=== PATIENT | female | born 1985 | race Caucasian/White ===

== ENCOUNTER 2017-09-10 09:08 | Emergency (ER) | payer OTHER, SELFPAY ==
[2017-09-10 10:43] VITALS: BP 134/86; PULSE 79; RESP 20; TEMP 36.8; O2SAT 98; BMI 67.6
--- NOTE | 2017-09-10 11:01 | HMH.EDUTC ---
[facility] [place] Disposition Clinical Impression: Contact allergic reaction Disposition: Home, Self-Care Condition on Discharge: Good Instructions: DI for Contact Dermatitis, DI for General Allergic Reactions Additional Instructions: * Sounds like could be due to the cleaning products used yesterday. STOP using them immediately or wear gloves. * benadryl every 4-6 hours as we discussed. Guage dose and frequency on symptoms and fatigue. YOU HAD 50mg INJECTION here at 1110 so no additional benadryl for at least 4 hours. If too drowsy, can take zyrtec 10mg during the day and reserve benadryl for nighttime * holding off on steroids due to your type 1 DM. BE SURE to follow up for now, worsening or progressing symptoms as they may be necessary. * cool showers or compresses calms the itching. Oatmeal baths may help as well. * Cortisone cream may also help and wouldn't raise your blood sugar. Referrals: Ana Rdoriguez APRN [Primary Care Provider] - ( Follow up immediately for new, progressing or worsening symptoms. You should notice improvement over the next 24-48 hours so if not, be sure to follow up ) Forms: Work/School Release Time of Disposition: 11:17 Medical Decision Making Vital Signs: 09/10/17 10:43 Temperature 98.2 F Temperature Source Temporal Artery Scan Pulse Rate [Brachial] 79 Respiratory Rate 20 Blood Pressure [Right Arm] 134/86 Blood Pressure Mean [Right Arm] 102 Blood Pressure Source [Right Arm] Automatic Cuff Blood Pressure Position [Right Arm] Sitting 02 Sat by Pulse Oximetry 98 Oxygen Delivery Method Room Air Orders (Tests/Meds): ED MEDICATIONS Generic Name Dose Route Start Last Admin Trade Name Tram PRN Reason Stop Dose Admin Diphenhydramine HCl 50 mg 09/10/17 11:06 Benadryl 50mg/1ml Vial IM 09/10/17 11:07 ONCE ONE - Nader Inquiry Pt receiving controlled substance: No [facility] [place] HPI - General Stated complaint: Hands are swelling Time Seen by Provider: 09/10/17 11:01 Mode of Arrival: Ambulatory Source of Information: Patient Limitations: No Limitations Description of Symptoms (Recalled from Triage Doc. by RN): LAST NIGHT HANDS STARTED ITCHING AND SWELLING. SHE DID CLEAN WITH BLEACH YESTERDAY BUT HAS DONE THAT BEFORE WITH NO PROBLEM. HEENT Symptoms (Recalled from RN notes): No Resp Symptoms (Recalled from RN notes): No Skin Symptoms (Recalled from RN notes): No MS Symptoms (Recalled from RN notes): No Functional Status (Recalled from RN notes): NA - History of Present Illness Provider Complaint: c/o bilateral hands itchy, red, swollen. Two kids w/ stomach virus right now. Cleaned most of the day yesterday w/ cleaning wipes, think bleach ones. Did not wear gloves. Reports doing this multiple times in the past the same way without reactions. Woke up arouns 2am w/ bilateraly hands itching. Up again around 4-5 w/ itching and redness. Noticed swelling a few hours later. Hasn't taken or tried anything for symptoms. Denies SOA, sore throat, difficulty swallowing. Is Type I Diabetic. - Related Data Home Medications Medication Instructions Recorded Confirmed Insulin Aspart [Novolog] 100 unit SQ BID 09/10/17 09/10/17 Insulin Glargine,Hum.rec.anlog 100 unit SQ TID 09/10/17 09/10/17 [Basaglar Kwikpen U-100] Allergies Allergy/AdvReac Type Severity Reaction Status Date / Time amoxicillin [From AUGMENTIN] Allergy Unknown SWELLING Verified 09/10/17 10:06 clavulanic acid Allergy Unknown SWELLING Verified 09/10/17 10:06 [From AUGMENTIN] - Worker's Comp Is this a Worker's Comp case?: No [facility] History I have reviewed the patient's past medical history: Yes Medical History: Reports:: Diabetes Mellitus Type 1 Other Surgeries: Yes: Appendectomy, Other (tonsillectomy, biopsy left groin 1997, laser surgery genital wart ) ROS Obtained: Yes Systems reviewed as appropriate & no additional complaints - Constitutional Constitutional: Denies body ache, Denies chills, Conner
--- NOTE | 2017-09-10 11:06 | ED_ITS ---
[facility] [place] Disposition Clinical Impression: Contact allergic reaction Disposition: Home, Self-Care Condition on Discharge: Good Instructions: DI for Contact Dermatitis, DI for General Allergic Reactions Additional Instructions: * Sounds like could be due to the cleaning products used yesterday. STOP using them immediately or wear gloves. * benadryl every 4-6 hours as we discussed. Guage dose and frequency on symptoms and fatigue. YOU HAD 50mg INJECTION here at 1110 so no additional benadryl for at least 4 hours. If too drowsy, can take zyrtec 10mg during the day and reserve benadryl for nighttime * holding off on steroids due to your type 1 DM. BE SURE to follow up for now, worsening or progressing symptoms as they may be necessary. * cool showers or compresses calms the itching. Oatmeal baths may help as well. * Cortisone cream may also help and wouldn't raise your blood sugar. Referrals: Ana Rodriguez APRN [Primary Care Provider] - ( Follow up immediately for new , progressing or worsening symptoms. You should notice improvement over the next 24-48 hours so if not, be sure to follow up ) Forms: Work/School Release Time of Disposition: 11:17 Medical Decision Making Vital Signs: 09/10/17 10:43 Temperature 98.2 F Temperature Source Temporal Artery Scan Pulse Rate [Brachial] 79 Respiratory Rate 20 Blood Pressure [Right Arm] 134/86 Blood Pressure Mean [Right Arm] 102 Blood Pressure Source [Right Arm] Automatic Cuff Blood Pressure Position [Right Arm] Sitting 02 Sat by Pulse Oximetry 98 Oxygen Delivery Method Room Air Orders (Tests/Meds): ED MEDICATIONS Generic Name Dose Route Start Last Admin Trade Name Tram PRN Reason Stop Dose Admin Diphenhydramine HCl 50 mg 09/10/17 11:06 Benadryl 50mg/1ml Vial IM 09/10/17 11:07 ONCE ONE - Nader Inquiry Pt receiving controlled substance: No [facility] [place] HPI - General Stated complaint: Hands are swelling Time Seen by Provider: 09/10/17 11:01 Mode of Arrival: Ambulatory Source of Information: Patient Limitations: No Limitations Description of Symptoms (Recalled from Triage Doc. by RN): LAST NIGHT HANDS STARTED ITCHING AND SWELLING. SHE DID CLEAN WITH BLEACH YESTERDAY BUT HAS DONE THAT BEFORE WITH NO PROBLEM. HEENT Symptoms (Recalled from RN notes): No Resp Symptoms (Recalled from RN notes): No Skin Symptoms (Recalled from RN notes): No MS Symptoms (Recalled from RN notes): No Functional Status (Recalled from RN notes): NA - History of Present Illness Provider Complaint: c/o bilateral hands itchy, red, swollen. Two kids w/ stomach virus right now. Cleaned most of the day yesterday w/ cleaning wipes, think bleach ones. Did not wear gloves. Reports doing this multiple times in the past the same way without reactions. Woke up arouns 2am w/ bilateraly hands itching. Up again around 4-5 w/ itching and redness. Noticed swelling a few hours later. Hasn't taken or tried anything for symptoms. Denies SOA, sore throat, difficulty swallowing. Is Type I Diabetic. - Related Data Home Medications Medication Instructions Recorded Confirmed Insulin Aspart [Novolog] 100 unit SQ BID 09/10/17 09/10/17 Insulin Glargine,Hum.rec.anlog 100 unit SQ TID 09/10/17 09/10/17 [Basaglheidy Jones U-100] Allergies Allergy/AdvReac Type Severity Reaction Status Date / Time amoxicillin [From AUGMENTIN] Allergy Unknow
== END 2017-09-10 11:19 | disposition home or self-care (01) ==
PROVIDERS: Emergency Provider Nurse Practitioner Family; Family Provider Family Medicine; PCP Nurse Practitioner Family
DX: L50.0 Allergic urticaria (principal); E10.9 Type 1 diabetes mellitus without complications; Z79.4 Long term (current) use of insulin; Z88.1 Allergy status to other antibiotic agents
CPT/HCPCS: 96372; 99202

== ENCOUNTER → 2018-07-23 13:30 | Outpatient (CLI) | payer BC, SELFPAY | PROVIDERS: Visit Provider Nurse Practitioner Family | DX: R11.0 Nausea (principal); E11.9 Type 2 diabetes mellitus without complications | CPT/HCPCS: 87086; 87088; 87186 ==

== ENCOUNTER → 2018-11-01 10:34 | Outpatient (CLI) | payer BC, SELFPAY ==
[2018-11-01 10:49] LABS: Basophils # 0.1 K/mm3 (0-0.2); Eosinophils # 0.1 K/mm3 (0.0-0.4); Eosinophils % 2.1 % (0.1-12.0); Hematocrit 44.4 % (37.0-47.0); Lymphocytes # 1.8 K/mm3 (0.7-4.5); Lymphocytes % 32.2 % (10-50); Mean Corpuscular HGB Conc 31.6 g/dL (31.8-35.4); Mean Corpuscular Hemoglobin 29.7 pg (27.0-31.2); Mean Corpuscular Volume 94.1 fl (81-99); Mean Platelet Volume 8.3 fl (7.4-10.4); Monocytes # 0.2 K/mm3 (0.1-1.0); Monocytes % 3.1 % (1.7-9.3); Neutrophils # 3.5 K/mm3 (1.8-7.8); Neutrophils % 61.6 % (37.0-80.0); Platelet Count 293 K/mm3 (142-424); Red Blood Count 4.72 M/mm3 (4.20-5.40); Red Cell Distribution Width 13.3 % (11.5-17.5); White Blood Count 5.7 K/mm3 (4.8-10.8)
[2018-11-01 12:12] LABS: Alanine Aminotransferase 21 U/L (12-78); Albumin Level 3.6 gm/dL (3.4-5.0); Alkaline Phosphatase 65 U/L (46-116); Anion Gap 14.5 mEq/L (5-15); Aspartate Amino Transferase 13 U/L (15-37); Bilirubin,Total 0.4 mg/dL (0.2-1.0); Blood Urea Nitrogen 12 mg/dL (7-18); Calcium 8.8 mg/dL (8.5-10.1); Carbon Dioxide 28 mmol/L (21.0-32.0); Chloride 104 mmol/L (98-107); Creatinine,Serum 0.65 mg/dL (0.55-1.02); Estimated Glomerular Filt Rate 104 ml/min (>60); GFR (African American) 126 ML/MIN (>60); Globulin 3.7 gm/dl (1.3-3.2); Glucose 157 mg/dL (74-106); Potassium 4.5 mmoL/L (3.5-5.1); Sodium 142 mmol/L (136-145); Thyroid Stimulating Hormone 0.56 uIU/ml (0.358-3.740); Total Protein,Serum 7.3 gm/dL (6.4-8.2)
[2018-11-01 14:36] LABS: Hemoglobin A1C 8.1 % (0.0-7.0)
[2018-11-02 10:37] LABS: Microalbumin, Urine <3.0 ug/mL (Not Estab.)
== END ==
PROVIDERS: Visit Provider Internal Medicine Adolescent Medicine
DX: E10.9 Type 1 diabetes mellitus without complications (principal); Z79.4 Long term (current) use of insulin
CPT/HCPCS: 36415; 80053; 82043; 83036; 84443; 85025

== ENCOUNTER → 2019-07-10 12:25 | Outpatient (CLI) | payer BC, SELFPAY ==
[2019-07-10 14:16] LABS: Anion Gap 9.3 mEq/L (5-15); Blood Urea Nitrogen 9 mg/dL (7-18); Calcium 8.3 mg/dL (8.5-10.1); Carbon Dioxide 28 mmol/L (21.0-32.0); Chloride 105 mmol/L (98-107); Creatinine,Serum 0.72 mg/dL (0.55-1.02); Estimated Glomerular Filt Rate 92 ml/min (>60); GFR (African American) 111 ML/MIN (>60); Glucose 165 mg/dL (74-106); Potassium 4.3 mmoL/L (3.5-5.1); Sodium 138 mmol/L (136-145)
[2019-07-10 14:23] LABS: Hemoglobin A1C 8.9 % (0.0-7.0)
== END ==
PROVIDERS: Visit Provider Internal Medicine Adolescent Medicine
DX: E10.9 Type 1 diabetes mellitus without complications (principal)
CPT/HCPCS: 36415; 80048; 83036

== ENCOUNTER → 2019-10-16 13:12 | Outpatient (CLI) | payer BC, SELFPAY ==
[2019-10-16 16:06] LABS: HDL Cholesterol 67 mg/dl (40-60)
[2019-10-16 16:16] LABS: Direct LDL Cholesterol 100.22 mg/dL (100-129)
[2019-10-16 16:21] LABS: Triglycerides 49 mg/dl (30-150); VLDL Cholesterol 10 mg/dL (0-40)
[2019-10-16 17:19] LABS: Chol/HDL Ratio 2.5 (1-3.5); Cholesterol 170 mg/dl (140-200)
[2019-10-16 17:21] LABS: Hemoglobin A1C 7.7 % (4.0-6.0)
== END ==
PROVIDERS: Visit Provider Internal Medicine Adolescent Medicine
DX: E10.9 Type 1 diabetes mellitus without complications (principal)
CPT/HCPCS: 36415; 80061; 83036

== ENCOUNTER → 2020-01-16 12:39 | Outpatient (CLI) | payer BC, SELFPAY ==
[2020-01-16 13:36] LABS: Hemoglobin A1C 7.2 % (4.0-6.0)
[2020-01-16 14:15] LABS: Chloride 102 mmol/L (98-107)
[2020-01-16 14:16] LABS: Potassium 4.3 mmoL/L (3.5-5.1); Sodium 139 mmol/L (136-145)
[2020-01-16 14:18] LABS: Alanine Aminotransferase 17 U/L (12-78); Alkaline Phosphatase 52 U/L (38-126); Anion Gap 13.3 mEq/L (5-15); Aspartate Amino Transferase 21 U/L (14-36); Bilirubin,Total 0.7 mg/dl (0.2-1.3); Blood Urea Nitrogen 8 mg/dl (7-17); Carbon Dioxide 28 mmol/L (22.0-30.0); Estimated Glomerular Filt Rate 95 ml/min (>60); GFR (African American) 115 ML/MIN (>60)
[2020-01-16 14:19] LABS: Albumin Level 4.6 g/dl (3.5-5.0); Albumin/Globulin Ratio 1.6 (1.1-1.8); Calcium 9.7 mg/dl (8.4-10.2); Globulin 2.8 g/dL (1.3-3.2); Glucose 208 mg/dl (74-100); Total Protein,Serum 7.4 g/dl (6.3-8.2)
== END ==
PROVIDERS: Visit Provider Internal Medicine Adolescent Medicine
DX: E10.9 Type 1 diabetes mellitus without complications (principal)
CPT/HCPCS: 36415; 80053; 83036

== ENCOUNTER 2020-03-22 00:23 | Emergency (ER) | payer BC, SELFPAY ==
[2020-03-22] VITALS (11 sets, daily range): BP systolic 102–171; BP diastolic 67–108; PULSE 50–88; RESP 15–17; TEMP 36.7; O2SAT 96–100; BMI 34.0
--- NOTE | 2020-03-22 00:28 | XR_ITS ---
PROCEDURE: XR CHEST PORTABLE CLINICAL HISTORY: chest pain COMPARISON: CXR CHEST(2 VIEWS-NOT PORTABLE) from 02/26/2015 CXR1 CHEST-PORTABLE from 03/16/2017 FINDINGS: The cardiomediastinal silhouette and pulmonary vascularity are within normal limits. The lungs are clear without infiltrates, suspicious nodules, or pleural effusions. No acute bony abnormalities. IMPRESSION: No acute findings. Dictated by: Thomas Chester MD 03/22/2020 08:03 Electronically signed by Thomas Chester MD in [place] 03/22/2020 08:03
--- NOTE | 2020-03-22 00:32 | ECG_ITS ---
APPROVED REPORT Exam: Resting ECG HR:73 bpm ECG Measurements Heart Rate 73 AXES AL 154 P 61 QRSd 86 QRS 74 QT 376 T 53 QTc 414 <Conclusion> Normal sinus rhythm Possible Left atrial enlargement Low voltage QRS Borderline ECG Electronically signed by : Miki Bourne, 03/22/2020 09:12:16
[2020-03-22 00:42] LABS: Basophils # 0.1 K/mm3 (0-0.2); Basophils % 0.8 % (0.1-2.0); Eosinophils # 0.2 K/mm3 (0.0-0.4); Eosinophils % 3.2 % (0.1-12.0); Hematocrit 42.4 % (37.0-47.0); Hemoglobin 14.5 g/dL (12.2-16.2); Lymphocytes % 49.7 % (10-50); Mean Corpuscular HGB Conc 34.2 g/dL (31.8-35.4); Mean Corpuscular Hemoglobin 31.2 pg (27.0-31.2); Mean Corpuscular Volume 91.4 fl (81-99); Mean Platelet Volume 8.8 fl (7.4-10.4); Monocytes # 0.2 K/mm3 (0.1-1.0); Monocytes % 3.3 % (1.7-9.3); Neutrophils # 2.6 K/mm3 (1.8-7.8); Platelet Count 204 K/mm3 (142-424); Red Blood Count 4.64 M/mm3 (4.20-5.40); Red Cell Distribution Width 13.2 % (11.5-17.5); White Blood Count 6.1 K/mm3 (4.8-10.8)
[2020-03-22 00:44] LABS: Anion Gap 12.8 mEq/L (5-15); Blood Urea Nitrogen 9 mg/dl (7-17); Calcium 9.3 mg/dl (8.4-10.2); Carbon Dioxide 27 mmol/L (22.0-30.0); Chloride 102 mmol/L (98-107); Creatinine Clearance Estimated 208 mL/min (50-200); Estimated Glomerular Filt Rate 113 ml/min (>60); GFR (African American) 137 ML/MIN (>60); Glucose 289 mg/dl (74-100); Potassium 3.8 mmoL/L (3.5-5.1); Sodium 138 mmol/L (136-145)
[2020-03-22 00:53] LABS: NT Pro Brain Natriuretic Pep. 56.9 pg/mL (0-125)
[2020-03-22 00:58] LABS: Troponin I < 0.01 ng/ml (0.00-0.034)
[2020-03-22 01:02] LABS: T4 (Thyroxine) 8.2 ug/dl (5.53-11.0)
[2020-03-22 04:21] LABS: Troponin I < 0.01 ng/ml (0.00-0.034)
--- NOTE | 2020-03-22 05:07 | HMH.EDCP ---
ED Disposition Clinical Impression: Chest pain Disposition: Home, Self-Care Condition on Discharge: Good Instructions: DI for Atypical Chest Pain Referrals: Provider,Referral, MD [Primary Care Provider] - - Critical Care Critical Care Time: No Attestation: On 03/22/20, the high probability of a clinically significant, sudden or life threatening deterioration of the following system(s) required my full and direct attention, intervention and personal management. The time I documented below is in addition to time spent performing reported procedures but includes the following listed in this critical care notation. Medical Decision Making - Medical Records Medical records reviewed: Yes: I reviewed the patient's medical records. - Nader Inquiry Pt receiving controlled substance: No Vital Signs: 03/22/20 00:24 Temperature 98.0 F Temperature Source Oral Pulse Rate [Right Brachial] 88 Respiratory Rate 16 Blood Pressure [Right Arm] 171/108 H Blood Pressure Mean [Right Arm] 129 Blood Pressure Source [Right Arm] Automatic Cuff Blood Pressure Position [Right Arm] Sitting 02 Sat by Pulse Oximetry 98 Oxygen Delivery Method Room Air - Lab Data Lab results reviewed: Yes: I reviewed the patient's lab results. Lab Results 03/22/20 00:25: WBC 6.1, RBC 4.64, Hgb 14.5, Hct 42.4, MCV 91.4, MCH 31.2, MCHC 34.2, RDW 13.2, Plt Count 204, MPV 8.8, Neut % (Auto) 43.0, Lymph % (Auto) 49.7, [place] % (Auto) 3.3, Eos % (Auto) 3.2, Baso % (Auto) 0.8, Neut # (Auto) 2.6, Lymph # (Auto) 3.0, [place] # (Auto) 0.2, Eos # (Auto) 0.2, Baso # (Auto) 0.1 03/22/20 00:25: Sodium 138, Potassium 3.8, Chloride 102, Carbon Dioxide 27, Anion Gap 12.8, BUN 9, Creatinine 0.60, Estimated Creat Clear 208, Estimated GFR 113, Est GFR ( Amer) 137, Glucose 289 H, Calcium 9.3, Troponin I < 0.01, TSH 0.90, Thyroxine (T4) 8.2 03/22/20 00:25: NT-Pro-B Natriuret Pep 56.9 03/22/20 03:30: Troponin I < 0.01 Result diagrams: 03/22/20 00:25 03/22/20 00:25 Orders (Tests/Meds): ED MEDICATIONS Generic Name Dose Route Start Last Admin Trade Name Freq PRN Reason Stop Dose Admin Nitroglycerin 0.4 mg 03/22/20 00:32 03/22/20 00:36 Nitrostat 0.4mg Sl Tablet SL 04/21/20 00:31 1 tab Q5MINP PRN Administration Chest Pain Discontinued Medications Generic Name Dose Route Start Last Admin Trade Name Freq PRN Reason Stop Dose Admin Aspirin 324 mg 03/22/20 00:32 03/22/20 00:36 Aspirin 81mg Chewable Tablet PO 03/22/20 00:33 81 mg ONCE ONE Administration Morphine Sulfate 4 mg 03/22/20 01:51 03/22/20 01:56 Morphine 4mg/Ml Syringe IV 03/22/20 01:52 4 mg ONCE ONE Administration ORDERS Category Date Time Status XR chest portable Stat Exams 03/22/20 00:28 Taken Troponin I Q3H Lab 03/22/20 06:45 Ordered - Radiology Data #1 Image(s): Chest Preliminary Findings: Normal/NAD - ECG Data Tracing #1 I reviewed this ECG and interpreted as documented below: Normal Sinus Rhythm: Yes Medical Decision Narrative: Had 2 troponins drawn here in the ED both were negative. Chest Pain HPI - General Chief Complaint: Chest Pain Stated Complaint: chest pain Time Seen by Provider: 03/22/20 02:00 Mode of Arrival: Family Vehicle Limitations: No Limitations Description of Symptoms (Recalled from ER Triage Doc. by RN): began having chest pain this evening around 1999 while at work. stated it was dull and located directly over her heart with intermittent sharp radiation to the left neck and left arm. Pt denies nausea. states she feels like she can't get a 'deep breath'. - History of Present Illness MD complaint: chest pain Onset (ago): hour(s) Time: 18:00 Duration: intermittent Activity at onset: during rest Pain location: substernal Severity: moderate Severity scale (1-10): 3 Quality: tightness Pain radiation: LUE Relieving factors: rest Exacerbating factors: inspiration, movement Associated symptoms
--- NOTE | 2020-03-22 06:37 | PC.NURSE ---
pt left via adult female family member. no acute distress. no issues.
[2020-04-19 11:53] LABS: POC Glucose,Bedside 277 (70-110)
== END 2020-03-22 06:38 | disposition home or self-care (01) ==
PROVIDERS: Emergency Provider Family Medicine; PCP Internal Medicine Adolescent Medicine
DX: R07.9 Chest pain, unspecified (principal); E10.9 Type 1 diabetes mellitus without complications; F17.210 Nicotine dependence, cigarettes, uncomplicated; Z88.1 Allergy status to other antibiotic agents; Z90.49 Acquired absence of other specified parts of digestive tract
CPT/HCPCS: 71045; 80048; 82962; 83880; 84436; 84443; 84484; 85025; 93005; 96365; 96374; 96375; 99283; 99284

== ENCOUNTER → 2020-03-26 13:41 | Outpatient (CLI) | payer BC, SELFPAY ==
[2020-03-26 15:09] LABS: Hemoglobin A1C 7.6 % (4.0-6.0)
[2020-03-26 15:12] LABS: Alanine Aminotransferase 16 U/L (12-78); Albumin Level 4.5 g/dl (3.5-5.0); Albumin/Globulin Ratio 1.7 (1.1-1.8); Alkaline Phosphatase 55 U/L (38-126); Anion Gap 12.2 mEq/L (5-15); Aspartate Amino Transferase 23 U/L (14-36); Bilirubin,Total 0.5 mg/dl (0.2-1.3); Blood Urea Nitrogen 7 mg/dl (7-17); Calcium 9.7 mg/dl (8.4-10.2); Carbon Dioxide 30 mmol/L (22.0-30.0); Chloride 104 mmol/L (98-107); Chol/HDL Ratio 1.8 (1-3.5); Cholesterol 156 mg/dl (140-200); Estimated Glomerular Filt Rate 113 ml/min (>60); GFR (African American) 137 ML/MIN (>60); Globulin 2.7 g/dL (1.3-3.2); Glucose 89 mg/dl (74-100); HDL Cholesterol 87 mg/dl (40-60); Potassium 4.2 mmoL/L (3.5-5.1); Sodium 142 mmol/L (136-145); Total Protein,Serum 7.2 g/dl (6.3-8.2); Triglycerides 48 mg/dl (30-150); VLDL Cholesterol 10 mg/dL (0-40)
[2020-03-26 15:23] LABS: Direct LDL Cholesterol 70.49 mg/dL (100-129)
== END ==
PROVIDERS: Visit Provider Internal Medicine Adolescent Medicine
DX: E10.9 Type 1 diabetes mellitus without complications (principal); Z79.4 Long term (current) use of insulin
CPT/HCPCS: 36415; 80053; 80061; 83036

== ENCOUNTER 2020-06-06 15:40 | Emergency (ER) | payer BC, SELFPAY ==
[2020-06-06 16:59] VITALS: BP 140/89; PULSE 81; RESP 18; TEMP 36.7; O2SAT 98; BMI 29.0
--- NOTE | 2020-06-06 17:14 | HMH.EDUTC ---
[facility] [place] Disposition Clinical Impression: Encounter for laboratory testing for COVID-19 virus Allergic rhinitis Qualifiers: Allergic rhinitis trigger: unspecified Allergic rhinitis seasonality: unspecified Qualified Code(s): J30.9 - Allergic rhinitis, unspecified Disposition: Home, Self-Care Condition on Discharge: Good Instructions: Allergic Rhinitis, DI for Allergic Rhinitis, Fluticasone Nasal [place], Preventing the Spread of Coronavirus Discharge Instructions Additional Instructions: *Monitor Temp, Over the counter Motrin or Tylenol as directed/as needed Tylenol every 4 hours and Motrin every 6 hours (as long as your family doctor has told you that you can take it) for fever or pain. and straight to ER if unable to lower temp less than 101.0 after medication given *Warm salt water gargles may help to soothe the throat *Throat Lozenges *Warm fluids like tea with honey may help to soothe the throat *Sleep elevated *Humidifier/Vaporizer *Flonase 2 sprays in each nostril daily but be aware that it may take 2-3 days before you notice improvement Follow up IMMEDIATELY for new or worsening symptoms or no Noticeable improvement over the next 48-72 hours. 911 for difficulty breathing or swallowing You was tested for today for COVID19 your test result should be back on Sunday, you may call back on Sunday to see if your test results are back and the result You was given a handout with instructions for Self Quarantine and Self isolation for while you wait on test results and what to do if they are positive Prescriptions: Fluticasone Propionate [Flonase 50mcg nasal spray 16gm] 1 spr NS DAILY #1 bottle [facility]: [id number] Referrals: Cornelius Vargas MD [Primary Care Provider] - As needed Forms: Work/School Release Time of Disposition: 17:45 Medical Decision Making - Nader Inquiry Pt receiving controlled substance: No Nader was queried for this patient: No Vital Signs: 06/06/20 16:59 Temperature 98.1 F Temperature Source Oral Pulse Rate [Radial] 81 Respiratory Rate 18 Blood Pressure [Right Arm] 140/89 Blood Pressure Mean [Right Arm] 106 Blood Pressure Source [Right Arm] Automatic Cuff Blood Pressure Position [Right Arm] Sitting 02 Sat by Pulse Oximetry 98 Oxygen Delivery Method Room Air Orders (Tests/Meds): ORDERS Category Date Time Status Covid-19 Nasal PCR Sendout Srinivasan Stat Lab 06/06/20 17:00 Received [facility] [place] HPI - General Stated complaint: Sore throat,cough,Wants Covid test Time Seen by Provider: 06/06/20 17:14 Mode of Arrival: Ambulatory Source of Information: Patient Limitations: No Limitations Description of Symptoms (Recalled from Triage Doc. by RN): coughing, sore throat since Sunday. HEENT Symptoms (Recalled from RN notes): Yes Resp Symptoms (Recalled from RN notes): No Skin Symptoms (Recalled from RN notes): No MS Symptoms (Recalled from RN notes): No Functional Status (Recalled from RN notes): wnl - History of Present Illness Provider Complaint: Patient states that she has been having sore throat nasal drainage and cough State that she has allergies and usually gets this this time of year but work will not let her come in with these symptoms where they are similar to COVID so she came in to get tested - Related Data Home Medications Medication Instructions Recorded Confirmed Insulin Aspart [Novolog Flexpen 8 unit SUB-Q TID 10/18/18 10/18/18 U-100 Insulin] Atorvastatin Calcium [Lipitor 20mg 20 mg PO HS 03/22/20 03/22/20 Tab] Gabapentin [Gabapentin 300mg Cap] 300 mg PO DAILY 03/22/20 03/22/20 Previous Rx's Medication Instructions Recorded insulin glargine 100 unit/mL (3 20 unit SUB-Q BID #15 ml 07/23/18 mL) subcutaneous pen Fluticasone Propionate [Flonase 1 spr NS DAILY #1 bottle 06/06/20 50mcg nasal spray 16gm] Allergies Allergy/AdvReac Type Severity Reaction Status Date / Time amoxicillin [From AUGMENTIN] Allergy Unknown SWE
[2020-06-06 18:08] VITALS: BP 140/89; PULSE 81; RESP 18; TEMP 36.7; O2SAT 98
[2020-06-08 13:54] LABS: Covid-19 Nasal PCR Sendout Lex Not Detected
== END 2020-06-06 18:09 | disposition home or self-care (01) ==
PROVIDERS: Emergency Provider Nurse Practitioner; PCP Internal Medicine Adolescent Medicine
DX: Z20.828 Contact with and (suspected) exposure to other viral communicable diseases (principal); J30.9 Allergic rhinitis, unspecified; E11.9 Type 2 diabetes mellitus without complications; F17.210 Nicotine dependence, cigarettes, uncomplicated; Z88.1 Allergy status to other antibiotic agents
CPT/HCPCS: 99201; U0004

== ENCOUNTER → 2020-11-09 10:50 | Outpatient (CLI) | payer BC, SELFPAY ==
[2020-11-09 11:22] LABS: Hemoglobin A1C 9.1 % (4.0-6.0)
[2020-11-09 11:56] LABS: Chloride 107 mmol/L (98-107); Sodium 142 mmol/L (136-145)
[2020-11-09 11:57] LABS: Potassium 4.2 mmoL/L (3.5-5.1)
[2020-11-09 11:59] LABS: Alanine Aminotransferase 22 U/L (12-78); Albumin Level 4.4 g/dl (3.5-5.0); Albumin/Globulin Ratio 1.6 (1.1-1.8); Alkaline Phosphatase 61 U/L (38-126); Anion Gap 9.2 mEq/L (5-15); Aspartate Amino Transferase 25 U/L (14-36); Bilirubin,Total 0.5 mg/dl (0.2-1.3); Blood Urea Nitrogen 9 mg/dl (7-17); Carbon Dioxide 30 mmol/L (22.0-30.0); Cholesterol 210 mg/dl (140-200); Estimated Glomerular Filt Rate 112 ml/min (>60); GFR (African American) 136 ML/MIN (>60); Globulin 2.7 g/dL (1.3-3.2); Total Protein,Serum 7.1 g/dl (6.3-8.2); Triglycerides 53 mg/dl (30-150); VLDL Cholesterol 11 mg/dL (0-40)
[2020-11-09 12:00] LABS: Calcium 9.6 mg/dl (8.4-10.2); Chol/HDL Ratio 2.5 (1-3.5); Glucose 164 mg/dl (74-100); HDL Cholesterol 83 mg/dl (40-60)
[2020-11-09 12:13] LABS: Direct LDL Cholesterol 102.49 mg/dL (100-129)
[2020-11-09 12:28] LABS: Thyroid Stimulating Hormone 0.54 uIU/mL (0.465-4.68)
== END ==
LOC: LAB 10:51
PROVIDERS: Visit Provider Internal Medicine Adolescent Medicine
DX: E10.9 Type 1 diabetes mellitus without complications (principal)
CPT/HCPCS: 36415; 80053; 80061; 83036; 84443

== ENCOUNTER → 2020-12-22 15:08 | Outpatient (CLI) | payer BC, SELFPAY ==
[2020-12-22 15:48] LABS: Basophils # 0.1 K/mm3 (0-0.2); Basophils % 0.8 % (0.1-2.0); Eosinophils # 0.2 K/mm3 (0.0-0.4); Eosinophils % 2.5 % (0.1-12.0); Hematocrit 40.8 % (37.0-47.0); Hemoglobin 13.6 g/dL (12.2-16.2); Lymphocytes # 1.7 K/mm3 (0.7-4.5); Lymphocytes % 23.9 % (10-50); Mean Corpuscular HGB Conc 33.3 g/dL (31.8-35.4); Mean Corpuscular Hemoglobin 30.2 pg (27.0-31.2); Mean Corpuscular Volume 90.6 fl (81-99); Mean Platelet Volume 8.3 fl (7.4-10.4); Monocytes # 0.3 K/mm3 (0.1-1.0); Monocytes % 4.3 % (1.7-9.3); Neutrophils # 4.9 K/mm3 (1.8-7.8); Neutrophils % 68.5 % (37.0-80.0); Platelet Count 272 K/mm3 (142-424); Red Cell Distribution Width 13.2 % (11.5-17.5); White Blood Count 7.1 K/mm3 (4.8-10.8)
[2020-12-22 17:46] LABS: Vitamin B12 367 pg/mL (239-931)
== END ==
LOC: LAB 15:09
PROVIDERS: Visit Provider Nurse Practitioner Family
DX: R42 Dizziness and giddiness (principal); M54.5 Low back pain
CPT/HCPCS: 36415; 82607; 85025

== ENCOUNTER → 2021-03-04 16:35 | Outpatient (CLI) | payer BC, SELFPAY ==
[2021-03-04 17:38] LABS: Hemoglobin A1C 7.6 % (4.0-6.0)
[2021-03-04 20:01] LABS: Alanine Aminotransferase 18 U/L (12-78); Albumin Level 4.4 g/dl (3.5-5.0); Albumin/Globulin Ratio 1.6 (1.1-1.8); Alkaline Phosphatase 51 U/L (38-126); Anion Gap 13.2 mEq/L (5-15); Aspartate Amino Transferase 21 U/L (14-36); Bilirubin,Total 0.5 mg/dl (0.2-1.3); Blood Urea Nitrogen 8 mg/dl (7-17); Calcium 8.9 mg/dl (8.4-10.2); Carbon Dioxide 26 mmol/L (22.0-30.0); Chloride 109 mmol/L (98-107); Estimated Glomerular Filt Rate 112 ml/min (>60); GFR (African American) 136 ML/MIN (>60); Globulin 2.7 g/dL (1.3-3.2); Potassium 4.2 mmoL/L (3.5-5.1); Sodium 144 mmol/L (136-145); Total Protein,Serum 7.1 g/dl (6.3-8.2)
[2021-03-04 20:44] LABS: Glucose 50 mg/dl (74-100)
== END ==
LOC: LAB 16:36
PROVIDERS: Visit Provider Internal Medicine Adolescent Medicine
DX: E10.9 Type 1 diabetes mellitus without complications (principal); Z79.4 Long term (current) use of insulin
CPT/HCPCS: 36415; 80053; 83036

== ENCOUNTER 2021-04-24 13:12 | Emergency (ER) | payer BC, SELFPAY ==
[2021-04-24 13:40] VITALS: BP 133/91; PULSE 91; RESP 18; TEMP 36.9; O2SAT 100; BMI 31.8
--- NOTE | 2021-04-24 14:16 | HMH.EDUTC ---
[facility] [place] Clinical Impression: Encounter for laboratory testing for COVID-19 virus Disposition: Home, Self-Care Condition on Discharge: Good Instructions: How to Care for Someone with COVID-19, DI for COVID-19 (Suspected or Confirmed ), DI for Nausea -- Adult Additional Instructions: covid swab was sent to lab, call later today for results. self isolate until test results are known to be negative Monitor temperature. Seek treatment if fever develops. Follow-up immediately if new or worse symptoms worsen or no noticeable improvement over 48 hours. Increase fluids such as water, Gatorade, Powerade, juice or Pedialyte with limited formula/dietary in children No food is okay as long as you are drinking. Once ready to eat start bland such as bananas, rice, applesauce, toast. Contagious until no diarrhea, vomiting, fever times 48 hours without medication Avoid antidiarrheals unless told otherwise. Best to let the virus run its course. Follow-up immediately for new or worsening symptoms or no noticeable improvement over the next 48 hours. Referrals: Cornelius Vargas MD [Primary Care Provider] - Time of Disposition: 14:21 Medical Decision Making - Nader Inquiry Pt receiving controlled substance: No Vital Signs: 04/24/21 13:40 Temperature 98.5 F Temperature Source Oral Pulse Rate [Right Brachial] 91 H Respiratory Rate 18 Blood Pressure [Right Arm] 133/91 H Blood Pressure Mean [Right Arm] 105 Blood Pressure Source [Right Arm] Automatic Cuff Blood Pressure Position [Right Arm] Sitting 02 Sat by Pulse Oximetry 100 Oxygen Delivery Method Room Air Orders (Tests/Meds): ORDERS Category Date Time Status Covid-19 Nasal PCR ([facility]) Routine Lab 04/24/21 13:50 Received [facility] [place] HPI - General Chief complaint: [facility] Stated complaint: nausea,tired Time Seen by Provider: 04/24/21 14:17 Mode of Arrival: Ambulatory Source of Information: Patient Limitations: No Limitations Description of Symptoms (Recalled from Triage Doc. by RN): PATIENT C/O SORE THROAT, FATIGUE, AND NAUSEA X 2 DAYS. REQUESTING COVID TEST HEENT Symptoms (Recalled from RN notes): No Resp Symptoms (Recalled from RN notes): No Skin Symptoms (Recalled from RN notes): No MS Symptoms (Recalled from RN notes): No Functional Status (Recalled from RN notes): WNL - History of Present Illness Provider Complaint: 35 yr old female presents for nausea,tiredness and sore throat for 2 days. request covid test - Related Data Home Medications Medication Instructions Recorded Confirmed Insulin Aspart [Novolog Flexpen 8 unit SUB-Q TID 10/18/18 10/18/18 U-100 Insulin] Atorvastatin Calcium [Lipitor 20mg 20 mg PO HS 03/22/20 03/22/20 Tab] Gabapentin [Gabapentin 300mg Cap] 300 mg PO DAILY 03/22/20 03/22/20 Previous Rx's Medication Instructions Recorded insulin glargine 100 unit/mL (3 20 unit SUB-Q BID #15 ml 07/23/18 mL) subcutaneous pen Fluticasone Propionate [Flonase 1 spr NS DAILY #1 bottle 06/06/20 50mcg nasal spray 16gm] Allergies Allergy/AdvReac Type Severity Reaction Status Date / Time amoxicillin [From AUGMENTIN] Allergy Unknown SWELLING Verified 07/23/18 08:50 clavulanic acid Allergy Unknown SWELLING Verified 07/23/18 08:50 [From AUGMENTIN] - Worker's Comp Is this a Worker's Comp case?: No [facility] History - Hepatitis A Screen Drug use history?: No High risk sexual behaviors?: No History of sexually transmitted infection?: No Currently employed?: No Childcare worker?: No Do you have indoor plumbing?: Yes Do you have electricity?: Yes Attestation statement:: This patient has been screened for Hepatitis A risk factors. I have reviewed the patient's past medical history: Yes Medical History: Reports:: Diabetes Mellitus Type 1 Other Surgeries: Yes: Appendectomy, Other Amputation: No Fractures: No - Social History Smoking Status: Current every day smoker Tobacco Type: cigarettes # Packs/Day
[2021-04-24 14:22] VITALS: BP 133/91; PULSE 91; RESP 18; TEMP 36.9; O2SAT 100
== END 2021-04-24 14:29 | disposition home or self-care (01) ==
PROVIDERS: Emergency Provider Nurse Practitioner Family; PCP Internal Medicine Adolescent Medicine
DX: Z20.822 Contact with and (suspected) exposure to COVID-19 (principal)
CPT/HCPCS: 99202; G0463; U0003

== ENCOUNTER 2021-06-06 10:31 | Emergency (ER) | payer BC, SELFPAY ==
[2021-06-06 10:44] VITALS: BP 143/93; PULSE 92; RESP 16; TEMP 36.6; O2SAT 100; BMI 31.8
--- NOTE | 2021-06-06 11:06 | HMH.EDUTC ---
[facility] [place] Clinical Impression: Viral syndrome, Bronchitis Type 1 diabetes mellitus Qualifiers: Diabetes mellitus complication status: without complication Qualified Code(s): E10.9 - Type 1 diabetes mellitus without complications Disposition: Home, Self-Care Condition on Discharge: Good Instructions: DI for Acute Bronchitis, DI for Viral Syndrome, DI for COVID-19 (Suspected or Confirmed ), Preventing the Spread of Coronavirus Discharge Instructions Additional Instructions: Drink plenty of fluids. Take tylenol or ibuprofen for pain or fever. Take the medications as directed. Follow up with your regular doctor. GO TO THE ER FOR ANY WORSENING SYMPTOMS Quarantine until you know the results of your covid-19 test. If it is positive, the health department should call you and give you further instructions about your length of Quarantine and other things. Notify your school or workplace of your results and follow their instructions regarding return to work/school. Prescriptions: Brompheniramine/Pseudoephed/Dm [Bromfed Dm Cough Syrup] 5 ml PO Q6HP PRN #240 ml PRN Reason: Cough Transmission Status: Received by [facility] Promethazine HCl [Phenergan 25mg tab] 25 mg PO Q6H PRN #12 tab PRN Reason: Nausea And Vomiting Transmission Status: Received by [facility] Azithromycin [Z-Celestine 250mg Tab*] 250 mg PO UD DOSE PK #6 tab Transmission Status: Received by [facility] Referrals: Cornelius Vargas MD [Primary Care Provider] - Forms: Work/School Release Time of Disposition: 11:22 Medical Decision Making - Medical Records Medical records reviewed: No: I reviewed the patient's medical records. - Nader Inquiry Pt receiving controlled substance: No Vital Signs: 06/06/21 10:44 06/06/21 11:37 Temperature 97.8 F 98.3 F Temperature Source Oral Oral Pulse Rate 90 Pulse Rate [Right] 92 H Respiratory Rate 16 16 Blood Pressure 140/87 Blood Pressure [Right Arm] 143/93 H Blood Pressure Mean [Right Arm] 109 Blood Pressure Source Automatic Cuff Blood Pressure Source [Right Arm] Automatic Cuff Blood Pressure Position Sitting Blood Pressure Position [Right Arm] Sitting 02 Sat by Pulse Oximetry 100 Oxygen Delivery Method Room Air Room Air - Lab Data Lab results reviewed: Yes: I reviewed the patient's lab results. Lab Results 06/06/21 10:45: Chlamy pneumoniae PCR Not detected, Adenovirus (PCR) Not detected, B. pertussis DNA (PCR) Not detected, Coronavirus OC43 (PCR) Not detected, Coronavirus HKU1 (PCR) Not detected, Coronavirus 229E (PCR) Not detected, SARS-CoV-2 (PCR) Not detected, Coronavirus NL63 (PCR) Not detected, Human Metapneumovir PCR Not detected, Influenza A (H1) PCR Not detected, Influ A (H1N1/09) PCR Not detected, Influenza A (H3) PCR Not detected, Influenza Type A (PCR) Not detected, Influenza Type B (PCR) Not detected, M. pneumoniae (PCR) Not detected, Parainfluenza 1 (PCR) Not detected, Parainfluenza 2 (PCR) Not detected, Parainfluenza 3 (PCR) Not detected, Parainfluenza 4 (PCR) Not detected, RSV (PCR) Not detected, Entero/Rhino (PCR) Not detected 06/06/21 11:04: Strep Scn Rapid Clinic Negative Orders (Tests/Meds): ORDERS Category Date Time Status Strep Screen Confirmation Routine Micro 06/06/21 11:04 Received [facility] HPI - General Stated complaint: vomiting, headache, dizziness Time Seen by Provider: 06/06/21 11:06 Mode of Arrival: Ambulatory Source of Information: Patient Limitations: No Limitations Description of Symptoms (Recalled from Triage Doc. by RN): Pt c/o feeling dizzy, vomting, nasuea, headache and feeling SOA at times that started last night HEENT Symptoms (Recalled from RN notes): No Resp Symptoms (Recalled from RN notes): No Skin Symptoms (Recalled from RN notes): No MS Symptoms (Recalled from RN notes): No Functional Status (Recalled from RN notes): na - History of Present Illness Provider Compla
[2021-06-06 11:17] LABS: UTC Strep Screen (Rapid) Negative (Negative)
[2021-06-06 11:37] VITALS: BP 140/87; PULSE 90; RESP 16; TEMP 36.8; O2SAT 98
[2021-06-06 12:48] LABS: Adenovirus,PCR Not Detected (NotDetected); Bordetella Pertussis Not Detected (NotDetected); Chlamydophila Pneumoniae, PCR Not Detected (NotDetected); Coronavirus 19, PCR Not Detected (NotDetected); Coronavirus 229E Not Detected (NotDetected); Coronavirus NL63 Not Detected (NotDetected); Coronavirus OC43 Not Detected (NotDetected); Coronovirus HKU1,PCR Not Detected (NotDetected); Human Metapneumovirus Not Detected (NotDetected); Influenza A, PCR Not Detected (NotDetected); Influenza AH1, 2009 Not Detected (NotDetected); Influenza AH1, PCR Not Detected (NotDetected); Influenza AH3,PCR Not Detected (NotDetected); Influenza B, PCR Not Detected (NotDetected); Mycoplasma Pneumoniae, PCR Not Detected (NotDetected); Parainfluenza 1, PCR Not Detected (NotDetected); Parainfluenza 2, PCR Not Detected (NotDetected); Parainfluenza 3, PCR Not Detected (NotDetected); Parainfluenza 4, PCR Not Detected (NotDetected); Respiratory Syncytial Virus Not Detected (NotDetected); Rhinovirus/Enterovirus Not Detected (NotDetected)
== END 2021-06-06 11:38 | disposition home or self-care (01) ==
PROVIDERS: Emergency Provider Nurse Practitioner Family; PCP Internal Medicine Adolescent Medicine
DX: J20.9 Acute bronchitis, unspecified (principal); B34.9 Viral infection, unspecified; Z20.822 Contact with and (suspected) exposure to COVID-19; E10.9 Type 1 diabetes mellitus without complications
CPT/HCPCS: 87581; 87632; 87798; 87880; 99203; C9803; G0463; U0003; U0005

== ENCOUNTER → 2021-08-04 10:46 | Outpatient (CLI) | payer BC, SELFPAY ==
[2021-08-04 12:00] LABS: Hemoglobin A1C 9.4 % (4.0-6.0)
[2021-08-04 12:18] LABS: Chloride 103 mmol/L (98-107); Potassium 4.2 mmoL/L (3.5-5.1); Sodium 135 mmol/L (136-145)
[2021-08-04 12:21] LABS: Alanine Aminotransferase 14 U/L (12-78); Albumin Level 4.4 g/dl (3.5-5.0); Albumin/Globulin Ratio 1.7 (1.1-1.8); Alkaline Phosphatase 66 U/L (38-126); Anion Gap 13.2 mEq/L (5-15); Aspartate Amino Transferase 19 U/L (14-36); Bilirubin,Total 0.8 mg/dl (0.2-1.3); Blood Urea Nitrogen 14 mg/dl (7-17); Carbon Dioxide 23 mmol/L (22.0-30.0); Estimated Glomerular Filt Rate 112 ml/min (>60); GFR (African American) 135 ML/MIN (>60); Globulin 2.6 g/dL (1.3-3.2)
[2021-08-04 12:22] LABS: Calcium 9.2 mg/dl (8.4-10.2); Glucose 333 mg/dl (74-100)
== END ==
LOC: LAB 10:47
PROVIDERS: Visit Provider Internal Medicine Adolescent Medicine
DX: E10.9 Type 1 diabetes mellitus without complications (principal); Z79.4 Long term (current) use of insulin
CPT/HCPCS: 36415; 80053; 83036

== ENCOUNTER → 2021-12-07 08:07 | Outpatient (CLI) | payer BC, SELFPAY ==
--- NOTE | 2021-12-07 | CA_ITS ---
APPROVED REPORT Exam: Exercise Treadmill Technologist: Silvia Kumari, Ht: 5 ft 6 in Wt: 172 lbs BSA: 1.88 m2 HR: 73 bpm BP: 132/90 mmHg Medical History Medications: GlUCagon,,,,, INSULIN GLARGINE,,,,, INSULIN ASPART,,,,, SuLFAMETHOXAZole,,,,, Stress Test Details Test: Jarret HR Resting HR: 90 bpm Max Heart Rate (APMHR): 182.282222 bpm Max HR Achieved: 168 bpm Target HR (85% APMHR): 154.321905 bpm % of APMHR: 92.31 Recovery HR: 99 bpm BP Resting BP: 127/86 mmHg Max BP: 197/92 mmHg Recovery BP: 149.0/89.0 mmHg ECG Resting ECG: NSR, rightward axis Clinical Exercise duration: 09:50 min Highest Stage Achieved: 4 Exercise capacity: 12.8 METs Stress ECG Conclusion Exercised 9:50 on Jarret Protocol Max HR: 168 % of PM: 92% Max BP: 197/92 MET's: 12.8 Test stopped due to: SOA, fatigue Symptoms: No CP. Arrhythmias/Ectopy: None ST-T Changes: Allowing for motion artifact, the ST response to exercise is within normal. Conclusion: Normal GXT. GXT only (no imaging) Electronically signed by : Vu Morgan MD 12/08/2021 11:49:52
== END ==
LOC: RT 08:08
PROVIDERS: PCP Internal Medicine Adolescent Medicine; Visit Provider Internal Medicine Adolescent Medicine
DX: R42 Dizziness and giddiness (principal)
CPT/HCPCS: 93017

== ENCOUNTER 2022-02-25 11:15 | Emergency (ER) | payer BC, SELFPAY ==
[2022-02-25 11:16] VITALS: BP 162/87; PULSE 85; RESP 18; TEMP 36.8; O2SAT 98; BMI 29.0
--- NOTE | 2022-02-25 11:30 | HMH.EDGENADL ---
ED Disposition Clinical Impression: COVID-19 Disposition: Home, Self-Care Condition on Discharge: Good Instructions: DI for Fever (Symptom) -- Adult Additional Instructions: Rest, stay well hydrated, take tylenol and ibuprofen as needed for fever/muscle aches/headache. Return to the emergency department if you have any significant difficulty breathing or other concerning symptoms. Referrals: Cornelius Vargas MD [Primary Care Provider] - Time of Disposition: 12:17 - Critical Care Critical Care Time: No Attestation: On 02/25/22, the high probability of a clinically significant, sudden or life threatening deterioration of the following system(s) required my full and direct attention, intervention and personal management. The time I documented below is in addition to time spent performing reported procedures but includes the following listed in this critical care notation. Medical Decision Making - Medical Records Medical records reviewed: Yes: I reviewed the patient's medical records. - Nader Inquiry Pt receiving controlled substance: No Vital Signs: 02/25/22 11:16 Temperature 98.3 F Temperature Source Oral Pulse Rate [Left Radial] 85 Respiratory Rate 18 Blood Pressure [Right Arm] 162/87 H Blood Pressure Mean [Right Arm] 112 Blood Pressure Source [Right Arm] Automatic Cuff Blood Pressure Position [Right Arm] Sitting 02 Sat by Pulse Oximetry 98 Oxygen Delivery Method Room Air - Lab Data Lab results reviewed: Yes: I reviewed the patient's lab results. Lab Results 02/25/22 11:25: SARS-CoV-2 (PCR) Detected A, Influenza A Untype (PCR) Not detected, Influenza Type B (PCR) Not detected 02/25/22 11:28: Urine Color Yellow, Urine Appearance Clear, Urine pH 6.0, Ur Specific Forreston >= 1.030, Urine Protein Negative, Urine Glucose (UA) 2+, Urine Ketones 1+, Urine Blood Negative, Urine Nitrate Negative, Urine Bilirubin Negative, Urine Urobilinogen 1.0, Ur Leukocyte Esterase Negative, Urine RBC 3-5, Urine WBC Occasional, Ur Squamous Epith Cells 3-5, Urine Bacteria 3+ 02/25/22 11:28: Urine HCG, Qual Negative Orders (Tests/Meds): ED MEDICATIONS Discontinued Medications Generic Name Dose Route Start Last Admin Trade Name Freq PRN Reason Stop Dose Admin Ondansetron HCl 4 mg 02/25/22 11:36 02/25/22 12:06 Ondansetron 4mg Odt SL 02/25/22 11:37 4 mg ONCE ONE Administration ORDERS Category Date Time Status Chest XR -- portable [XR chest portable] Stat Exams 02/25/22 11:31 Taken Urine Culture Stat Micro 02/25/22 11:28 Received General Adult HPI - General Chief complaint: Fever Stated complaint: covid exposure, cough, body aches, h/a Time Seen by Provider: 02/25/22 11:37 Mode of Arrival: Ambulatory Limitations: No Limitations Description of Symptoms (Recalled from ER Triage Doc. by RN): c/o chills, aches, fever, nauseated and non productive cough. States has covid - History of Present Illness HPI narrative: 36-year-old female presents with symptoms of chills, nausea, generalized body aches, fatigue. Symptoms of been ongoing for 1 to 2 days, she states her tested positive for COVID. She took a home rapid test that was negative. Also reports history of type 1 diabetes, last blood sugars were in the 250s. She denies any vomiting, abdominal pain, diarrhea, shortness of breath, cough or other symptoms. Due to fever with T-max of 101.2, has been taking Tylenol and ibuprofen intermittently with mild relief - Related Data Home Medications Medication Instructions Recorded Confirmed Insulin Aspart [Novolog Flexpen 8 unit SUB-Q TID 10/18/18 10/18/18 U-100 Insulin] Atorvastatin Calcium [Lipitor 20mg 20 mg PO HS 03/22/20 03/22/20 Tab] Gabapentin [Gabapentin 300mg Cap] 300 mg PO DAILY 03/22/20 03/22/20 Previous Rx's Medication Instructions Recorded insulin glargine 100 unit/mL (3 20 unit SUB-Q BID #15 ml 07/23/18 mL) subcutaneous pen Fluticasone Propion
--- NOTE | 2022-02-25 11:31 | XR_ITS ---
PROCEDURE INFORMATION: Exam: XR Chest Exam date and time: 02/25/2022 11:35 AM Age: 36 years old Clinical indication: Cough and shortness of breath; Additional info: Pt's has covid, she now presents w covid symptoms. Weakness, fever, SOA, cough x days TECHNIQUE: Imaging protocol: Radiologic exam of the chest. Views: 1 view. COMPARISON: CR XR CHEST CHP 1V 04/06/2021 10:36 PM FINDINGS: Lungs: Unremarkable. No consolidation. Pleural spaces: No pneumothorax. Heart/Mediastinum: Unremarkable. No cardiomegaly. Bones/joints: No acute fracture. IMPRESSION: No acute findings.
--- NOTE | 2022-02-25 11:34 | PC.NURSE ---
COLT MENON at
[2022-02-25 11:37] LABS: Microscopic, Urine URINE MICROSCOPIC (MICROSCOPIC)
[2022-02-25 11:37] LABS: Influenza A, PCR Not Detected (NotDetected); Influenza B, PCR Not Detected (NotDetected)
[2022-02-25 11:43] LABS: Appearance,Urine CLEAR (Clear); Bilirubin,Urine Negative (Negative); Blood, Urine Negative (Negative); Color,Urine YELLOW (Yellow); Glucose,Urine (UA) 2+ (Negative); Ketones,Urine 1+ (Negative); Leukocyte Esterase,Urine Negative (Negative); Nitrate,Urine Negative (Negative); Protein,Urine Negative (Negative); Specific Gravity, Urine >= 1.030 (1.005-1.030)
--- NOTE | 2022-02-25 11:44 | PC.NURSE ---
rad at BS
[2022-02-25 11:46] LABS: Urine Pregnancy, HCG Qual. Negative (Negative)
[2022-02-25 12:05] LABS: Bacteria,Urine 3+ /lpf; WBC,Urine Occasional #/hpf (0-3)
[2022-02-25 12:07] LABS: Coronavirus 19, PCR Detected (NotDetected)
[2022-02-25 12:46] VITALS: BP 141/90; PULSE 86; O2SAT 96
[2022-02-25 12:48] VITALS: BP 141/90; PULSE 86; RESP 16; TEMP 36.8; O2SAT 96
== END 2022-02-25 12:49 | disposition home or self-care (01) ==
PROVIDERS: Emergency Provider Emergency Medicine; PCP Internal Medicine Adolescent Medicine
DX: U07.1 COVID-19 (principal); R50.81 Fever presenting with conditions classified elsewhere; R05.9 Cough, unspecified; M79.10 Myalgia, unspecified site; R51.9 Headache, unspecified; R11.0 Nausea; R53.83 Other fatigue; E10.9 Type 1 diabetes mellitus without complications
CPT/HCPCS: 71045; 81001; 81025; 87086; 87088; 87186; 99283; C9803; U0003; U0005

== ENCOUNTER → 2022-08-25 09:37 | Outpatient (CLI) | payer BC, SELFPAY ==
--- NOTE | 2022-08-25 09:44 | XR_ITS ---
FINAL REPORT CLINICAL HISTORY: Acute right shoulder pain after rough housing COMPARISON: none FINDINGS: RIGHT SHOULDER Three views demonstrate no acute fracture or dislocation. The visualized joint spaces are normally aligned. The soft tissues are unremarkable. IMPRESSION: No acute process. Reviewed, Interpreted and Dictated by Raysa Khan MD Transcribed by Theresa Ahmadi Authenticated and [facility]
== END ==
LOC: RAD 09:38
PROVIDERS: PCP Nurse Practitioner Family; Visit Provider Nurse Practitioner Family
DX: M25.511 Pain in right shoulder (principal)
CPT/HCPCS: 73030

== ENCOUNTER → 2022-09-04 10:08 | Outpatient (CLI) | payer BC, SELFPAY ==
--- NOTE | 2022-09-04 10:12 | MR_ITS ---
FINAL REPORT TECHNIQUE: Multiplanar and multisequence imaging of the right shoulder was obtained without contrast. CLINICAL HISTORY: PAIN IN RIGHT SHOULDER. limited rom FINDINGS: Bones and joints: There is no acute fracture, edema, or pathologic marrow replacement. Acromioclavicular joint degenerative disease is present and there is osteophytosis which narrows the supraspinatus outlet. Rotator cuff: There is no full-thickness rotator cuff tendon tear. There is a partial thickness, articular sided infraspinatus tendon tear measuring less than 50% of the tendon thickness. Subscapularis tendon and teres minor are intact. No biceps tendon dislocation is present. There is no fatty atrophy of the rotator cuff muscles. Labrum: There is a SLAP type 2 lesion of the superior labrum. Remaining labrum is intact. The inferior glenohumeral ligaments appear intact. There is a small amount of fluid in the biceps tendon sheath. No biceps tendon tear is identified. Other: There is a small joint effusion. Remaining soft tissues are within normal limits. IMPRESSION: Slap type 2 tear of the superior labrum. Biceps tenosynovitis. Partial thickness, articular sided tear of the infraspinatus tendon, less than 50%. Reviewed, Interpreted and Dictated by Sindy Garcia MD Transcribed by Corie Devlin Authenticated and [facility]
== END ==
PROVIDERS: PCP Nurse Practitioner Family; Visit Provider Nurse Practitioner Family
DX: M25.511 Pain in right shoulder (principal)
CPT/HCPCS: 73221

== ENCOUNTER 2022-11-22 08:00 | Outpatient (RCR) | payer BC, SELFPAY ==
--- NOTE | 2022-09-29 08:41 | HMH.OTOPEV ---
OT Inpatient Evaluation Rehab OT Outpatient Eval Start: 09/29/22 08:28 Freq: Status: Active Protocol: Document 09/29/22 08:28 [email or web address] (Rec: 09/29/22 08:41 [facility] [id number]) E-signed By Trista Maharaj, OT Outpatient Therapy Subjective History Subjective History Pt is a 37 year old female who reports to therapy for initial evaluation to right shoulder. Pt initially injured right shoulder in April of 2022 during horseplay . She has experienced pain and decreased AROM since injury. Pt had MRI completed on 09/04/22 which found: Slap type 2 tear of the superior labrum. Biceps tenosynovitis. Partial thickness, articular sided tear of the infraspinatus tendon, less than 50%. Pt demonstrates with a decline in AROM and strength at right shoulder. Pt reports constant pain. 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 Pt is right hand dominant. Pt does have a past medical history of Type 1 diabetes. Chief Complaint Pain,Stiff,Weakness Symptom Type Ache,Throb,Sharp,Dull,Burning Symptoms Relieved By Nothing Symptoms Aggravated By Physical Activity,Lifting Prior Functional Limitations None Current Functional Limitations Reaching,Lifting,Housework, Dressing,Sleeping,Recreation Activity Symptom Description Constant but Variable Level of pain today (0-10) 8 Pain scale - at its best (0-10) 5 Pain scale - at its worst (0-10) 10 Shoulder/Elbow Eval Shoulder Objective Measurements Shoulder ROM Right Shoulder Abduction Active Range of 80 degrees Motion (degrees) Shoulder Flexion Active Range of Motion 99 degrees (degrees) Query Text: Shoulder External Rotation Active Range 59 degrees of Motion (degrees) Shoulder Internal Rotation Active Range 34 degrees of Motion (degrees) pain with active ROM shoulder exam right standard pain with passive ROM shoulder exam right standard
--- NOTE | 2022-10-23 10:52 | HMH.RHREAS ---
Rehab Reassessment Rehab OP Re-assessment Start: 10/23/22 10:44 Freq: Status: Active Protocol: Document 10/23/22 10:44 ARLENE (Rec: 10/23/22 10:51 [facility]ARSA[facility] [id number]) E-signed By Trista Maharaj OT Rehab Re-assessment Subjective Subjective I am still in a lot of pain. Objective Objective Notes Pt continues to be seen twice a week in order to address right shoulder deficits. Each session pt engages in right shoulder AROM, AAROM, and strengthening exercises to right shoulder. Pt also receives PROM manual stretching to right shoulder in all planes for improved AROM. Modalities are provided in order to decrease pain/ inflammation. Assessment Progress Assessment Slower Than Expected Assessment Notes Pt has been consistent about attending therapy sessions. Pt's AROM and MMT have improved since starting therapy. However, pt continues to complain of severe pain. Pt explains her pain remains at a 7-8/10 at all times. The pain continues to reach a 10/10 at it's worst. Pt explains she is seeking a second opinion for possible surgery on November 02 . She returns to [facility] ortho on November 07. Current AROM at R shoulder Flex: 124 degrees; 4- Abd: 120 degrees; 4- ER: 65 degrees; 4- IR: 55 degrees ; 4- Patient goals met ST, 2, 3, and 5 Goals Not Met See below Revised Goals ST LT-5 Plan Plan Continue with Ot plan of care at this time. Frequency of Therapy 1-2x's a week Duration of therapy 4 more weeks Time and Billing Re-Eval Time 12 Re-Eval Billing Units 1 PHYSICIAN CERTIFICATION: I certify the specified therapy services for Radha Yeager are required, authorized, and reviewed every 30 days.
--- NOTE | 2022-11-22 08:56 | HMH.RHREAS ---
Rehab Reassessment Rehab OP Re-assessment Start: 10/23/22 10:44 Freq: Status: Active Protocol: Document 11/22/22 08:00 ARLENE (Rec: 11/22/22 08:56 RMAPRILHALL [id number]) E-signed By Trista Maharaj OT Rehab Re-assessment Subjective Subjective It is better since the shot. Objective Objective Notes Pt continues to be seen twice a week in order to address right shoulder deficits. Each session pt engages in right shoulder AROM, AAROM, and strengthening exercises to right shoulder. Pt also receives PROM manual stretching to right shoulder in all planes for improved AROM. Modalities are provided in order to decrease pain/ inflammation. Assessment Progress Assessment Progressing as Expected Assessment Notes Pt has been consistent about attending therapy sessions. Pt's AROM and MMT have improved since starting therapy. Pt reports her pain is no longer constant. The pain continues to reach a 6/10 at it's worst. Pt received a cortizone injection on November 02 and reports her pain has improved since then. Pt does report periods of 0/10 pain ( huge improvement). Pt did seek a second opinion with Dr. Anthony who provided the cortizone injection. Pt returns back to Dr. Anthony next week. Current AROM at R shoulder Flex: 134 degrees; 4- Abd: 138 degrees; 4- ER: 78 degrees; 4- IR: 66 degrees ; 4- Patient goals met ST, 2, 3, and 5 LT, 2, 3, and 5 Goals Not Met See below Revised Goals ST LT New Goals: AROM R shoulder Flex: 145 degrees Abd: 145 degrees ER: 80 degrees
== END 2022-11-22 08:05 | disposition home or self-care (01) ==
LOC: OT 08:00
PROVIDERS: PCP Nurse Practitioner Family; Visit Provider Orthopaedic Surgery
DX: M25.511 Pain in right shoulder (principal); S43.431A Superior glenoid labrum lesion of right shoulder, initial encounter
CPT/HCPCS: 97010; 97014; 97110; 97140; 97164; 97166; G0283

== ENCOUNTER → 2023-05-15 14:23 | Outpatient (CLI) | payer BC, SELFPAY | LOC: RT 14:24 | PROVIDERS: PCP Nurse Practitioner Family; Visit Provider Internal Medicine | DX: R07.89 Other chest pain (principal); R94.31 Abnormal electrocardiogram [ECG] [EKG]; R42 Dizziness and giddiness; E10.9 Type 1 diabetes mellitus without complications; F17.200 Nicotine dependence, unspecified, uncomplicated | CPT/HCPCS: 93270 ==

== ENCOUNTER → 2023-05-29 14:47 | Outpatient (CLI) | payer BC, SELFPAY | PROVIDERS: PCP Nurse Practitioner Family; Visit Provider Internal Medicine | DX: R42 Dizziness and giddiness (principal); R94.31 Abnormal electrocardiogram [ECG] [EKG] ==

== ENCOUNTER → 2023-05-31 07:58 | Outpatient (CLI) | payer BC, SELFPAY ==
--- NOTE | 2023-05-31 07:59 | CT_ITS ---
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 A noncontrast coronary calcium scan was performed. A CT attenuation threshold of 130 Hounsfield units (HU) was used for the detection of calcium in contiguous voxels of 1 sq mm in area to be counted as individual lesions. Bolus tracking in the ascending aorta with a threshold of 180 HU was performed. Immediately afterwards, ECG synchronized cardiac CT was then performed from the cardiac base to apex using retrospective gating with ECG tube current modulation. A total of 85 mL of Isovue 370 mg/mL contrast medium was administered at 5 mL/sec followed by a saline flush using a biphasic injection protocol. A tube voltage of 120 KVp was used. The patient received the following medications prior to the cardiac CT. 0.8 mg of sublingual nitroglycerin. The average heart rate at the time of acquisition was 72 bpm and regular. Image Reconstruction Transaxial images were reconstructed at 0.67 mm slide thickness. Data was reviewed interactively on an advanced workstation capable of 2 and 3-dimensional displays in all conventional reconstruction formats, including multiplanar reformations, maximum intensity projections, curved multiplanar reformations, and volume rendered reconstructions. When applicable, selected routine images describing the relevant coronary anatomy and pathology were saved and sent to PACS. Complications None Technical Quality Overall image quality was fair. Motion artifact was present. Coronary artery opacification was fair. Total DLP (Dose-Length Product) is 1314.7 mGy-cm. The reported value represents the total of one or more individual components during the CT acquisition of this date and at this time, and as such, the same value may appear in more than one CT report depending on the interpreting/reporting physicians. COMPARISON None FINDINGS CT Coronary Calcium Scoring LMA (Left Main Artery) = 0 LAD (Left Anterior Descending) = 65 LCX (Left Coronary Circumflex) = 0 RCA (Right Coronary Artery) = 2 Total Calcium Score = 67 using the AJ-130 method. The observed calcium score of 67 is approximately at > 95% percentile for subjects of the same age, sex, and race/ethnicity. The interpretation of the calcium heart score is based on the following continuum*: 0 = no calcified plaque detected (risk of coronary artery disease is very low ??? less than 5%) 1-10 = calcium detected in extremely minimal levels (risk of coronary diseases is still low ??? less than 10%) 11-100 = mild levels of plaque detected with certainty (mild or minimal narrowing of heart arteries is likely) 101-400 = definite,at least moderate levels of plaque detected (relatively high risk of a heart attack within 3-5 years) >401-999 = extensive levels of plaque detected (high risk of heart attack, high levels of vascular disease are present, high likelihood of at least one significant coronary narrowing) *The calcium heart score quantifies the burden of coronary calcification/plaque in the coronary arteries. The calcium heart score is not able to evaluate the presence or burden of non-calcified (i.e. soft) plaque. There is no identifiable calcification in the aortic valve, mitral annulus or mitral valve, pericardium, or myocardium. Coronary CT Angiography Coronaries have normal origin and proximal course. The coronary arterial system is right dominant. Note: Stenosis is reported as maximum percentage diameter stenosis. Stenosis grading is reported using the following scheme: Quantitative Stenosis Grading: Left Main (LM): The left main originates normally from the left sinus of
[2023-05-31 08:24] VITALS: BMI 30.7
[2023-05-31 08:46] VITALS: BP 134/83; PULSE 59; RESP 18; TEMP 36.6; O2SAT 98
[2023-05-31 08:48] LABS: Urine Pregnancy, HCG Qual. Negative (Negative)
[2023-05-31 08:54] LABS: Basophils # 0.1 K/mm3 (0-0.2); Basophils % 1.2 % (0.1-2.0); Eosinophils # 0.1 K/mm3 (0.0-0.4); Eosinophils % 2.9 % (0.1-12.0); Hematocrit 43.8 % (37.0-47.0); Hemoglobin 14.7 g/dL (12.2-16.2); Lymphocytes # 1.4 K/mm3 (0.7-4.5); Lymphocytes % 31.5 % (10-50); Mean Corpuscular HGB Conc 33.5 g/dL (31.8-35.4); Mean Corpuscular Hemoglobin 32.2 pg (27.0-31.2); Mean Corpuscular Volume 95.9 fl (81-99); Mean Platelet Volume 9.1 fl (7.4-10.4); Monocytes # 0.2 K/mm3 (0.1-1.0); Monocytes % 4.4 % (1.7-9.3); Neutrophils # 2.7 K/mm3 (1.8-7.8); Platelet Count 201 K/mm3 (142-424); Red Blood Count 4.57 M/mm3 (4.20-5.40); Red Cell Distribution Width 13.1 % (11.5-17.5); White Blood Count 4.5 K/mm3 (4.8-10.8)
--- NOTE | 2023-05-31 08:55 | CA_ITS ---
APPROVED REPORT EXAM: Comprehensive 2D, Doppler, and color-flow Echocardiogram Admissions Officer: Tere Dunham, RCS, RVS Ht: 5 ft 6 in Wt: 190lbs BSA: 1.96 BP: 155/91 mmHg Indications: Cp, DM type I, Smoker, Dizziness 2D Dimensions IVSd 1.25 cm LVEF (Visual) 63.90 % PWd 1.18 cm LA Volume 43.00 mL LVDd 4.45 cm LA Volume Index 21.50 mL/m2 (M/F) 16-34 LVDs 2.91 cm Aortic Root 3.02 cm Left Atrium 2.95 cm LVOT 1.89 cm (M/F) 1.5-2.5 M-Mode Dimensions RVDd 2.81 cm (0.9-2.6) LA Diam 3.41 cm (1.9-4.0) LVDd 5.29 cm (3.5-5.7) Ao Diam 3.16 cm (2.0-3.7) LVDs 3.65 cm (3.5-5.7) IVSd 0.90 cm (0.6-1.1) PWd 0.97 cm (0.6-1.1) EF (Teich) 58.20% EPSs 0.30 cm FS 31.00% EDV (Teich) 134.80 mL TAPSE 1.87 (<1.7) ESV (Teich) 56.30 mL LV Diastology E Decel Time 210.00 (160-240 msec) E/A Ratio 1.76 MED E' 10.60 (< 7 cm/sec) MED A' 9.00 cm/s E'/MED E' Ratio 6.49 (>14) LAT E' 16.00 (<10 cm/sec) LAT A' 7.80 cm/s E/LAT E' Ratio 4.30 (>14) Aortic Valve LVOT Max 127.00 (70-110 cm/s) LVOT VTI 29.23 cm AoV Peak Benigno. 136.00 (50-130 cm/s) AO Peak GR. 7.40 mmHg AO Mean GR. 3.70 (<5 mmHg) AO VTI 29.31 (18-25 cm) ROSALES (VTI) 2.80 (2.5-4.5 cm2) Mitral Valve MV A Velocity 39.00 (40-130 cm/s) E/A Ratio 1.76 MV Decel. Time 210.00 (160-240 ms) MV Mean Gr. 0.60 (<2mmHg) Pulmonary Valve PV Peak Velocity 94.00 (50-150 cm/s) Tricuspid Valve TR P. Velocity 193.00 cm/s RAP Estimate 10.00 mmHg RVSP 24.90 mmHg Left Ventricle The left ventricle is normal size. The left ventricular systolic function is normal. The left ventricular ejection fraction is within the normal range. There is normal left ventricular wall thickness. There is normal LV segmental wall motion. The left ventricular diastolic function is normal. LVEF is 55%. Right Ventricle The right ventricle is normal size. The right ventricular systolic function is normal. Atria The left atrium size is normal. The right atrium size is normal. There is no Doppler evidence of interatrial shunt. Aortic Valve The aortic valve opens well. There is no aortic valvular stenosis. No aortic regurgitation is present. Mitral Valve The mitral valve is normal in structure. No evidence of mitral valve stenosis. Trace mitral regurgitation. Tricuspid Valve The tricuspid valve leaflets are thin and pliable. Mild tricuspid regurgitation. RVSP is 20-25 mmHg. Pulmonic Valve The pulmonary valve is grossly normal in structure. Trace pulmonic regurgitation. Great Vessels The aortic root is normal in size. The ascending aorta is normal in size. IVC is normal in size and collapses >50% with inspiration. Pericardium There is no pericardial effusion. Other Information Study Quality: Fair Conclusion Normal biventricular systolic function. Mild TR. Electronically signed by : Ree Bryant MD 06/02/2023 17:08:50
[2023-05-31 08:58] LABS: POC Glucose,Bedside 145 (70-110)
[2023-05-31 09:02] LABS: Chloride 106 mmol/L (98-107); Sodium 138 mmol/L (136-145)
[2023-05-31 09:03] LABS: Potassium 4.1 mmoL/L (3.5-5.1)
[2023-05-31 09:05] LABS: Alanine Aminotransferase 16 U/L (12-78); Anion Gap 9.1 mEq/L (5-15); Aspartate Amino Transferase 21 U/L (14-36); Bilirubin,Direct 0.2 mg/dl (0.0-0.4); Bilirubin,Indirect 0.1 mg/dL (0.0-0.9); Bilirubin,Total 0.3 mg/dl (0.2-1.3); Bilirubin,Unconjugated 0.1 mg/dL (0.0-1.1); Blood Urea Nitrogen 9 mg/dl (7-17); Calcium 8.6 mg/dl (8.4-10.2); Carbon Dioxide 27 mmol/L (22.0-30.0); Cholesterol 181 mg/dl (140-200); Creatinine Clearance Estimated 145 mL/min (50-200); Estimated Glomerular Filt Rate 93 ml/min (>60); GFR (African American) 112 ML/MIN (>60); Glucose 148 mg/dl (74-100); Triglycerides 43 mg/dl (30-150); VLDL Cholesterol 9 mg/dL (0-40)
[2023-05-31 09:06] LABS: Alkaline Phosphatase 48 U/L (38-126); Chol/HDL Ratio 2.6 (1-3.5); HDL Cholesterol 69 mg/dl (40-60); Magnesium 1.7 mg/dl (1.6-2.3); Total Protein,Serum 6.8 g/dl (6.3-8.2)
[2023-05-31 09:17] LABS: Direct LDL Cholesterol 81.62 mg/dL (100-129)
[2023-05-31 09:23] VITALS: BP 152/94; PULSE 65; RESP 18; O2SAT 99
[2023-05-31 09:30] VITALS: BP 104/62; PULSE 65; RESP 18; O2SAT 99
[2023-05-31 09:35] VITALS: BP 124/69; PULSE 68; RESP 18; O2SAT 96
[2023-05-31 09:40] LABS: Thyroid Stimulating Hormone 0.46 uIU/mL (0.465-4.68)
[2023-05-31 10:07] LABS: Free T4 (Free Thyroxine) 1.29 ng/dl (0.78-2.19)
== END ==
LOC: RAD 07:59
PROVIDERS: PCP Nurse Practitioner Family; Visit Provider Internal Medicine
DX: R07.89 Other chest pain (principal); R42 Dizziness and giddiness; R94.31 Abnormal electrocardiogram [ECG] [EKG]; E10.9 Type 1 diabetes mellitus without complications; F17.200 Nicotine dependence, unspecified, uncomplicated
CPT/HCPCS: 75574; 80048; 80061; 80076; 81025; 82533; 82962; 83735; 84439; 84443; 85025; 93306; Q9967

== ENCOUNTER 2023-09-13 21:57 | Outpatient (CLI) | payer BC, SELFPAY ==
[2023-09-18 08:32] LABS: Neisseria gonorrhoeae, NAA Negative (Negative)
== END 2023-09-13 23:59 ==
LOC: LAB.DROPOF 21:58
PROVIDERS: PCP Obstetrics & Gynecology; Visit Provider Obstetrics & Gynecology
DX: Z72.51 High risk heterosexual behavior (principal)
CPT/HCPCS: 87491; 87591

== ENCOUNTER 2023-09-26 14:10 | Outpatient (CLI) | payer BC, SELFPAY ==
--- NOTE | 2023-09-26 14:10 | MM_ITS ---
PROCEDURE INFORMATION: Exam: Bilateral Screening 3D Mammography Exam date and time: 09/26/2023 2:05 PM Age: 38 years old Clinical indication: Screening examination TECHNIQUE: Imaging protocol: Bilateral Screening tomosynthesis and 2D mammography including computer-aided detection (CAD) when performed. COMPARISON: No relevant prior studies available. FINDINGS: MAMMOGRAPHY: Breast composition: The breasts are heterogeneously dense, which may obscure small masses. Mass: None. Architectural distortion: None. Calcifications: No suspicious calcifications. Asymmetric density: None. Skin thickening: None. Axillary adenopathy: None. IMPRESSION: No mammographic evidence of malignancy. Annual screening is recommended unless otherwise clinically indicated. ASSESSMENT: BI-RADS Category 1: Negative
== END 2023-09-26 23:59 ==
LOC: RAD 14:10
PROVIDERS: PCP Obstetrics & Gynecology; Visit Provider Obstetrics & Gynecology
DX: Z12.31 Encounter for screening mammogram for malignant neoplasm of breast (principal)
CPT/HCPCS: 77063; 77067

== ENCOUNTER 2024-10-06 15:13 | Outpatient (CLI) | payer BC, SELFPAY ==
--- NOTE | 2024-10-06 15:17 | XR_ITS ---
FINAL REPORT CLINICAL HISTORY: Left foot pain FINDINGS: AP, oblique and lateral views of the left foot were obtained. There is no acute fracture or dislocation. The joint spaces are preserved. There is a linear radiodensity between the heads of the third and fourth metatarsals measuring 12 mm. This is concerning for foreign body. It does not appear to be metallic and could be a piece of wood or splinter. IMPRESSION: No acute osseous abnormality of the left foot. Radiodensity between the heads of the third and fourth metatarsals is concerning for foreign body, as above. Reviewed, Interpreted and Dictated by Sindy Garcia MD Transcribed by Elizabeth Cates Authenticated and [facility]
--- NOTE | 2024-10-06 15:17 | XR_ITS ---
FINAL REPORT CLINICAL HISTORY: Right foot pain FINDINGS: AP, oblique and lateral views of the right foot were obtained. There is no acute fracture or dislocation. The joint spaces are preserved. Soft tissues are unremarkable. IMPRESSION: No acute osseous abnormality of the right foot. Reviewed, Interpreted and Dictated by Sindy Garcia MD Transcribed by Elizabeth Cates Authenticated and . [facility]
== END 2024-10-06 23:59 | disposition home or self-care (01) ==
LOC: RAD 15:14
PROVIDERS: PCP Nurse Practitioner Family; Visit Provider Nurse Practitioner
DX: M79.671 Pain in right foot (principal); M79.672 Pain in left foot
CPT/HCPCS: 73630

== ENCOUNTER 2024-12-15 10:16 | Outpatient (CLI) | payer BC, SELFPAY ==
[2024-12-15 11:07] LABS: Basophils % 0.7 % (0.1-2.0); Eosinophils # 0.1 Kmm3 (0.0-0.4); Eosinophils % 1.2 % (0.1-12.0); Hematocrit 38.1 % (37.0-47.0); Hemoglobin 12.4 g/dL (12.2-16.2); Lymphocytes # 1.2 K/mm3 (0.7-4.5); Mean Corpuscular HGB Conc 32.5 g/dL (31.8-35.4); Mean Platelet Volume 10.8 fl (7.4-10.4); Monocytes # 0.3 K/mm3 (0.1-1.0); Monocytes % 4.6 % (1.7-9.3); Neutrophils # 4.3 K/mm3 (1.8-7.8); Neutrophils % 73.3 % (37.0-80.0); Nucleated Red Blood Cells # 0 10^3/uL; Nucleated Red Blood Cells % 0 %; Platelet Count 229 K/mm3 (142-424); Red Blood Count 4.28 M/mm3 (4.20-5.40); Red Cell Distribution Width 13.8 % (11.5-17.5); Red Cell Distribution Width-SD 45.1 fL; White Blood Count 5.8 K/mm3 (4.8-10.8)
[2024-12-15 11:36] LABS: Alanine Aminotransferase 18 U/L (12-78); Albumin/Globulin Ratio 1.5 (1.1-1.8); Alkaline Phosphatase 55 U/L (38-126); Anion Gap 8.4 mEq/L (5-15); Aspartate Amino Transferase 19 U/L (14-36); Bilirubin,Total 0.6 mg/dl (0.2-1.3); Blood Urea Nitrogen 6 mg/dl (7-17); Calcium 8.9 mg/dl (8.4-10.2); Carbon Dioxide 27 mmol/L (22.0-30.0); Chloride 107 mmol/L (98-107); Chol/HDL Ratio 2.1 (1-3.5); Cholesterol 157 mg/dl (140-200); Estimated Glomerular Filt Rate 110 ml/min (>60); GFR (African American) 133 ML/MIN (>60); Globulin 2.7 g/dL (1.3-3.2); Glucose 195 mg/dl (74-100); HDL Cholesterol 74 mg/dl (40-60); Potassium 4.4 mmoL/L (3.5-5.1); Sodium 138 mmol/L (136-145); Total Protein,Serum 6.7 g/dl (6.3-8.2); Triglycerides 51 mg/dl (30-150); VLDL Cholesterol 10 mg/dL (0-40)
[2024-12-15 11:46] LABS: Hemoglobin A1C 7.3 % (4.0-6.0)
[2024-12-15 11:47] LABS: Direct LDL Cholesterol 58.78 mg/dL (100-129)
== END 2024-12-15 23:59 | disposition home or self-care (01) ==
LOC: LAB 10:21
PROVIDERS: PCP Nurse Practitioner Family; Visit Provider Nurse Practitioner Family
DX: E10.40 Type 1 diabetes mellitus with diabetic neuropathy, unspecified (principal); Z79.4 Long term (current) use of insulin
CPT/HCPCS: 36415; 80053; 80061; 83036; 85025